=== PATIENT | male | born 2000 | race Caucasian/White ===

== ENCOUNTER 2020-12-03 17:49 | Emergency (ER) | payer OTHER ==
[~2020-12-03] VITALS: Ht 195.6 cm; Wt 49.6 kg
[2020-12-03 18:07] VITALS: BP 126/81
== END 2020-12-03 19:53 | disposition home or self-care (01) ==
LOC: EEVIPCON 17:50 → ER 17:50
DX: U07.1 COVID-19 (principal); F17.200 Nicotine dependence, unspecified, uncomplicated
CPT/HCPCS: 87635; 99283; C9803

== ENCOUNTER 2023-01-27 21:36 | Emergency (ER) | payer BC, OTHER ==
[~2023-01-27] VITALS: Ht 185.4 cm; Wt 115.5 kg
[2023-01-27 21:43] VITALS: BP 119/61; PULSE 85; RESP 16; TEMP 98.4; O2SAT 100
== END 2023-01-28 02:08 | disposition left against medical advice (07) ==
LOC: ER 21:36
DX: R11.10 Vomiting, unspecified (principal); Z53.21 Procedure and treatment not carried out due to patient leaving prior to being seen by health care provider
CPT/HCPCS: 99281